=== PATIENT | female | born 1955 | race Hispanic/Latino ===

== ENCOUNTER 2022-12-23 10:20 | Day surgery (SDC) | payer MEDICARE ==
[2022-12-22 09:26] VITALS: BMI 40.3
[2022-12-22 15:09] LABS: Hemoglobin 13.4 g/dL (12.0-15.5); Mean Corpuscular HGB CONC 33.1 g/dL (32.0-36.0); Mean Corpuscular Hemoglobin 29.8 pg (27.0-33.0); Mean Platelet Volume 9.5 fl (7.4-10.4); Platelet Count 275 10x3/uL (150-450); RBC Distribution Width 13.4 % (11.5-14.5); White Blood Cell (WBC) Count 6.4 10x3/uL (3.5-10.5)
[2022-12-22 15:10] LABS: BHCG - Serum Negative (NEGATIVE); Pregs Control Background? CLEAR/WHITE (CLR/WHITE); Pregs Control Bar Appear? YES (CONTROL BAR)
[2022-12-23] MEDS ORDERED: CeleCOXIB 100 MG CAP ONE (11:36)
[2022-12-23] MEDS ORDERED: Dexamethasone 4 mg/ml Vial ONE (14:04)
[2022-12-23] MEDS ORDERED: Fentanyl 100 MCG/2 ML VIAL ONE (14:04)
[2022-12-23] MEDS ORDERED: Lidocaine 1% PF 5 ML VIAL ONE (14:04)
[2022-12-23] MEDS ORDERED: PROPOFOL 20 ML ONE (14:04)
[2022-12-23] MEDS ORDERED: Ondansetron PF 4 MG/2 ML Vial ONE (14:04)
[2022-12-23] MEDS ORDERED: CEFAZOLIN 2 GM VIAL ONE (14:13)
[2022-12-23] MEDS ORDERED: HYDROcodone/Acetaminophen 5/325 mg Tablet ONE (15:45)
== END 2022-12-23 16:50 | disposition home or self-care (01) ==
LOC: CSHSDC 10:20
PROVIDERS: ATTEND Obstetrics & Gynecology
PROC: 0UB98ZZ Excision of Uterus, Via Natural or Artificial Opening Endoscopic (ICD-10-PCS; principal; 2022-12-23)
DX: N84.0 Polyp of corpus uteri (principal); K21.9 Gastro-esophageal reflux disease without esophagitis; Z79.899 Other long term (current) drug therapy
CPT/HCPCS: 84703; 85027; 86850; 86900; 86901; 88305; J1100; J2405; J2704; J3010